=== PATIENT | male | born 2000 | race Caucasian/White ===

== ENCOUNTER 2021-02-28 17:14 | Emergency (ER) | payer OTHER ==
[~2021-02-28] VITALS: Ht 172.7 cm; Wt 79.9 kg
--- NOTE | 2021-02-28 18:42 | REP ---
INDICATION: pain after fall, hardware in arm. COMPARISON: None. TECHNIQUE: AP and lateral views FINDINGS: No acute fracture or destructive osseous lesion. There has been previous ORIF. Internal fixation plate is seen applied to the lateral cortex of the mid ulna with 4 fixing screws. IMPRESSION: No acute abnormality <Electronically signed by Reynold Cruz > 02/28/21 [id number]
--- NOTE | 2021-02-28 20:03 | REPVR ---
PROCEDURE INFORMATION: Exam: CT Left Upper Extremity Without Contrast, Forearm Exam date and time: 02/28/2021 7:11 PM Age: 20 years old Clinical indication: Injury or trauma; Fall; Blunt trauma (contusions or hematomas); Arm, lower; Left; Additional info: Deformity over plate in forearm, severe pain TECHNIQUE: Imaging protocol: CT of the Left upper extremity without contrast was performed. Exam focused on the forearm. Radiation optimization: All CT scans at this facility use at least one of these dose optimization techniques: automated exposure control; mA and/or kV adjustment per patient size (includes targeted exams where dose is matched to clinical indication); or iterative reconstruction. COMPARISON: CR Forearm Radius,Ulna 02/28/2021 5:49 PM FINDINGS: There is an old healed fracture of the radius diaphysis at the junction of the mid and proximal thirds. There is an old healed internally fixed fracture of the ulna diaphysis at the junction of the mid and distal thirds. The ulnar fracture is fixed by a cortical plate and 4 screws. The soft tissues and bones adjacent to the healed ulnar fracture are not adequately visualized secondary to artifact from the cortical plate and multiple screws. There does appear to be swelling of the soft tissues adjacent to the ulnar fracture site, but characterization of these changes cannot be accurately made. No acute fracture or evidence of orthopedic hardware loosening is identified. The elbow and wrist joints are intact. IMPRESSION: 1. Old healed fracture of the radius diaphysis. 2. Old healed internally fixed fracture of the ulna diaphysis. The orthopedic hardware results in artifact which results in inadequate visualization of the surrounding bone and soft tissues. Electronically signed by: Herb Davis On 02/28/2021 20:04:37 PM
[2021-02-28 20:24] VITALS: BP 139/83
== END 2021-02-28 20:33 | disposition home or self-care (01) ==
LOC: EDSEX 17:14 → M ED 17:14
DX: M79.602 Pain in left arm (principal); W01.0XXA Fall on same level from slipping, tripping and stumbling without subsequent striking against object, initial encounter; Y92.9 Unspecified place or not applicable; Y93.9 Activity, unspecified; Y99.1 Military activity